=== PATIENT | female | born 1990 | race African-American/Black ===

== ENCOUNTER 2017-04-16 08:25 | Emergency (ER) | payer MEDICAID, OTHER ==
[~2017-04-16] VITALS: Ht 175.3 cm; Wt 91.0 kg
[2017-04-16 08:32] VITALS: BP 127/94
== END 2017-04-16 09:03 | disposition left against medical advice (07) ==
LOC: ER 08:51
DX: R06.02 Shortness of breath (principal); Z53.21 Procedure and treatment not carried out due to patient leaving prior to being seen by health care provider

== ENCOUNTER 2017-05-20 23:02 | Emergency (ER) | payer OTHER ==
[~2017-05-20] VITALS: Ht 175.3 cm; Wt 82.0 kg
[2017-05-20 23:02] VITALS: BP 138/92
== END 2017-05-21 01:00 | disposition left against medical advice (07) ==
LOC: ER 23:02
DX: S01.01XA Laceration without foreign body of scalp, initial encounter (principal); Z53.21 Procedure and treatment not carried out due to patient leaving prior to being seen by health care provider; W22.8XXA Striking against or struck by other objects, initial encounter; Y93.89 Activity, other specified; Y92.89 Other specified places as the place of occurrence of the external cause; Y99.8 Other external cause status